=== PATIENT | female | born 1955 | race Caucasian/White ===

== ENCOUNTER 2023-05-13 11:13 | Outpatient (CLI) | payer MEDICARE | END 2023-05-13 11:14 | disposition home or self-care (01) | LOC: SCSRAD 11:13 | PROVIDERS: ATTEND Family Medicine | DX: M54.2 Cervicalgia (principal); M47.812 Spondylosis without myelopathy or radiculopathy, cervical region | CPT/HCPCS: 72040 ==

== ENCOUNTER 2025-04-18 09:22 | Outpatient (CLI) | payer OTHER | END 2025-04-18 09:23 | disposition home or self-care (01) | LOC: SCSBT 09:22 | PROVIDERS: ATTEND Physician Assistant | DX: Z78.0 Asymptomatic menopausal state (principal); M85.852 Other specified disorders of bone density and structure, left thigh | CPT/HCPCS: 77080 ==